=== PATIENT | male | born 1985 | race American Indian/Alaskan Native ===

== ENCOUNTER 2017-04-04 01:01 | Emergency (ER) | payer MEDICAID ==
[2017-04-04 01:10] VITALS: BP 127/76
[2017-04-04] MEDS ORDERED: cefTRIAXone (Rocephin) 250 mg Inj IM STA (01:16)
--- NOTE | 2017-04-04 01:16 | C.PDOC ---
History Of Present Illness pt with unprotected intercourse, presents with yellowish penile discharge, and some dysuria. No f/c/n/v No rashes Time Seen by Provider: 04/04/17 01:15 Chief Complaint (Nursing): Male Genitourinary History Per: Patient History/Exam Limitations: no limitations Onset/Duration Of Symptoms: Days Current Symptoms Are (Timing): Still Present Severity: Moderate Pain Scale Rating Of: 3 Quality Of Discomfort: Burning Associated Symptoms: denies: Fever, Chills Alleviating Factors: None Recent travel outside of the [place]: No Additional History Per: Patient Past Medical History Reviewed: Historical Data, Nursing Documentation, Vital Signs Vital Signs: Last Vital Signs Temp 97.9 F 04/04/17 01:08 Pulse 80 04/04/17 01:08 Resp 16 04/04/17 01:08 BP 127/76 04/04/17 01:08 Pulse Ox 98 04/04/17 01:16 Family History: States: No Known Family Hx - Social History Hx Tobacco Use: No Hx Alcohol Use: No Hx Substance Use: No - Immunization History Hx Tetanus Toxoid Vaccination: No Hx Influenza Vaccination: No Hx Pneumococcal Vaccination: No Review Of Systems Constitutional: Negative for: Fever, Chills Genitourinary: Positive for: Dysuria, Penile Discharge. Negative for: Scrotal Pain, Rash Skin: Negative for: Rash Neurological: Negative for: Weakness Psych: Negative for: Anxiety Physical Exam - Physical Exam Appears: Non-toxic, No Acute Distress Skin: Warm, Dry Male Genital: No Testicular Tenderness, No Inguinal Tenderness, Other ( yellowish penile discharge) Neurological/Psych: Oriented x3 Gait: Steady ED Course And Treatment O2 Sat by Pulse Oximetry: 98 Disposition Counseled Patient/Family Regarding: Studies Performed, Diagnosis, Need For Followup - Disposition Disposition: HOME/ ROUTINE Disposition Time: 01:16 Condition: FAIR Instructions: Sexually Transmitted Diseases (ED), Condom Use (ED) Forms: [employer] (Citizen Of [place]) - Clinical Impression Clinical Impression: STD exposure, Urethritis, Penile discharge
[2017-04-04] MEDS ORDERED: Lidocaine 1% Inj (20ml) ONE (01:37)
[2017-04-04 02:55] VITALS: PULSE 72; RESP 20; TEMP 98; O2SAT 97
== END 2017-04-04 02:54 | disposition home or self-care (01) ==
LOC: C.ER 01:01
DX: N34.2 Other urethritis (principal); Z20.2 Contact with and (suspected) exposure to infections with a predominantly sexual mode of transmission; R36.9 Urethral discharge, unspecified
CPT/HCPCS: 96372; 99282; J0696

== ENCOUNTER 2018-04-05 06:39 | Emergency (ER) | payer MEDICAID, OTHER ==
[2018-04-05] MEDS ORDERED: Tdap Vaccine 0.5 ml Vial (10-64 yrs) IM ONE (07:20)
[2018-04-05 07:39] VITALS: O2SAT 97
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
[2018-04-07 13:12] VITALS: BP 136/76; PULSE 82; RESP 16; TEMP 98.2
== END 2018-04-05 08:47 | disposition home or self-care (01) ==
LOC: C.ER 06:39
DX: S66.912A Strain of unspecified muscle, fascia and tendon at wrist and hand level, left hand, initial encounter (principal); S60.222A Contusion of left hand, initial encounter; Y04.0XXA Assault by unarmed brawl or fight, initial encounter; Y92.9 Unspecified place or not applicable